=== PATIENT | female | born 1935 | race Native Hawaiian/Other Pacific Islander ===

== ENCOUNTER 2019-02-27 10:15 | Outpatient (CLI) | payer OTHER, BC | END 2019-02-27 21:49 | disposition home or self-care (01) | LOC: RAD 10:15 | DX: M25.561 Pain in right knee (principal); M79.89 Other specified soft tissue disorders ==

== ENCOUNTER 2020-11-07 15:55 | Outpatient (CLI) | payer OTHER, BC ==
[2020-11-07 16:11] LABS: PLATELET COUNT 344 K/uL (152-353)
[2020-11-07 16:33] LABS: POTASSIUM 5.9 mmol/L (3.6-5.2)
== END 2020-11-07 19:14 | disposition home or self-care (01) ==
LOC: LAB 15:55
PROVIDERS: ATTEND Internal Medicine
DX: I12.9 Hypertensive chronic kidney disease with stage 1 through stage 4 chronic kidney disease, or unspecified chronic kidney disease (principal); N18.30 Chronic kidney disease, stage 3 unspecified; R53.1 Weakness; K92.1 Melena
CPT/HCPCS: 80069; 85027

== ENCOUNTER 2020-11-12 10:57 | Outpatient (CLI) | payer OTHER, BC ==
[2020-11-12 11:34] LABS: POTASSIUM 5.1 mmol/L (3.6-5.2)
== END 2020-11-12 19:04 | disposition home or self-care (01) ==
LOC: LAB 10:57
PROVIDERS: ATTEND Nurse Practitioner Family
DX: E87.5 Hyperkalemia (principal)
CPT/HCPCS: 80048; 82040; 84100; 84550

== ENCOUNTER 2020-11-26 09:15 | Outpatient (CLI) | payer OTHER, BC ==
[2020-11-26 09:35] LABS: PLATELET COUNT 272 K/uL (152-353)
[2020-11-26 10:11] LABS: POTASSIUM 5.8 mmol/L (3.6-5.2)
== END 2020-11-26 19:09 | disposition home or self-care (01) ==
LOC: LAB 09:15
PROVIDERS: ATTEND Internal Medicine
DX: E87.5 Hyperkalemia (principal); I10 Essential (primary) hypertension
CPT/HCPCS: 80048; 82040; 84100; 84550; 85027

== ENCOUNTER 2020-11-29 17:13 | Outpatient (CLI) | payer OTHER, BC ==
[2020-11-29 17:27] LABS: PLATELET COUNT 251 K/uL (152-353)
[2020-11-29 17:42] LABS: POTASSIUM 4.8 mmol/L (3.6-5.2)
== END 2020-11-29 19:08 | disposition home or self-care (01) ==
LOC: LAB 17:13
PROVIDERS: ATTEND Internal Medicine
DX: E87.5 Hyperkalemia (principal); N18.9 Chronic kidney disease, unspecified
CPT/HCPCS: 80069; 81000; 85027

== ENCOUNTER 2020-12-27 11:32 | Outpatient (CLI) | payer OTHER, BC ==
[2020-12-27 11:41] LABS: PLATELET COUNT 261 K/uL (152-353)
[2020-12-27 11:53] LABS: POTASSIUM 5.6 mmol/L (3.6-5.2)
== END 2020-12-27 21:03 | disposition home or self-care (01) ==
LOC: LAB 11:32
PROVIDERS: ATTEND Internal Medicine
DX: E11.22 Type 2 diabetes mellitus with diabetic chronic kidney disease (principal); N18.30 Chronic kidney disease, stage 3 unspecified; E87.5 Hyperkalemia
CPT/HCPCS: 80069; 85027